=== PATIENT | female | born 2000 | race Caucasian/White ===

== ENCOUNTER 2019-02-08 13:05 | Emergency (ER) | payer MEDICAID, OTHER ==
[~2019-02-08] VITALS: Ht 152.4 cm; Wt 66.5 kg
--- NOTE | 2019-02-08 14:31 | NUR ---
throat swab collected for strep test
== END 2019-02-08 15:47 | disposition home or self-care (01) ==
LOC: ER 13:06
DX: J02.9 Acute pharyngitis, unspecified (principal)
CPT/HCPCS: 87081; 87880; 99283